=== PATIENT | male | born 1980 | race Two or more races ===

== ENCOUNTER 2017-06-23 22:29 | Emergency (ER) | payer MEDICAID, OTHER | END 2017-06-24 00:55 | disposition left against medical advice (07) | LOC: MERGE 22:29 → ED 22:29 | DX: Z02.89 Encounter for other administrative examinations (principal); H92.01 Otalgia, right ear ==

== ENCOUNTER 2017-09-12 12:16 | Emergency (ER) | payer SELFPAY ==
[2017-09-12 12:16] VITALS: BMI 25.7
[2017-09-12 12:22] VITALS: RESP 17
[2017-09-12] MEDS ORDERED: Sodium Chloride 0.9% 1,000 ML IV STA ×2 (12:41)
--- NOTE | 2017-09-12 12:46 | ED PDOC ---
Arrival/HPI - General Chief Complaint: Flu-like Symptoms Time Seen by Provider: 09/12/17 12:26 Historian: Patient - History of Present Illness Narrative History of Present Illness (Text): 09/12/17 12:43 Patient is a 37M with a PMH of diabetes and anxiety who comes to the ED with a CC of fever, body aches and headache. He states that he came back from [place] two days ago and he has since been experiencing these symptoms. He is also complaining of SOB but he attributes this to his anxiety. He denies any throat pain, ear pain, congestion, chest pain, nausea, vomiting, diarrhea, abdominal pain, cough Time/Duration: Other (2d) Symptom Onset: Gradual Symptom Course: Worsening Activities at Onset: Rest Context: Sitting Past Medical History - Cardiac Hx Cardiac Disorders: Yes Hx Hypertension: Yes - Pulmonary Hx Respiratory Disorders: No - Neurological Hx Neurological Disorder: No - HEENT Hx HEENT Disorder: No - Renal Hx Renal Disorder: No - Endocrine/Metabolic Hx Endocrine Disorders: Yes Hx Diabetes Mellitus Type 2: Yes - Hematological/Oncological Hx Blood Disorders: No - Integumentary Hx Dermatological Disorder: No - Musculoskeletal/Rheumatological Hx Musculoskeletal Disorders: No - Gastrointestinal Hx Gastrointestinal Disorders: No - Genitourinary/Gynecological Hx Genitourinary Disorders: No - Psychiatric Hx Psychophysiologic Disorder: No Hx Substance Use: No - Anesthesia Hx Anesthesia: No - Suicidal Assessment Feels Threatened In Home Enviroment: No Family/Social History - Physician Review Nursing Documentation Reviewed: Yes Family/Social History: Unknown Family HX Smoking Status: Heavy Smoker > 10 Cigarettes Daily Hx Alcohol Use: Yes Frequency of alcohol use: Socially Hx Substance Use: No Allergies/Home Meds Allergies/Adverse Reactions: Allergies No Known Allergies Allergy (Unverified 09/12/17 12:17) Review of Systems - Review of Systems Constitutional: Fevers Eyes: Normal ENT: Normal. absent: Hearing Changes, Sore Throat Respiratory: SOB. absent: Cough, Sputum, Wheezing Cardiovascular: absent: Chest Pain, Syncope Gastrointestinal: absent: Abdominal Pain, Constipation, Diarrhea, Nausea, Vomiting Genitourinary Male: Normal Musculoskeletal: Myalgias Skin: absent: Normal Neurological: Headache Endocrine: Normal Hemo/Lymphatic: Normal Psychiatric: Anxiety Physical Exam Vital Signs Reviewed: Yes Vital Signs Temp Pulse Resp BP Pulse Ox 09/12/17 12:19 101.6 F H 127 H 17 135/82 99 Temperature: Febrile Blood Pressure: Normal Pulse: Tachycardic Respiratory Rate: Normal Appearance: Positive for: Unkept Pain Distress: None Mental Status: Positive for: Alert and Oriented X 3 - Systems Exam Head: Present: Atraumatic, Normocephalic Pupils: Present: PERRL Extroacular Muscles: Present: EOMI Conjunctiva: Present: Normal Mouth: Present: Moist Mucous Membranes Neck: Present: Normal Range of Motion Respiratory/Chest: Present: Clear to Auscultation, Good Air Exchange. No: Respiratory Distress, Accessory Muscle Use Cardiovascular: Present: Regular Rate and Rhythm, Normal S1, S2. No: Murmurs Abdomen: Present: Normal Bowel Sounds. No: Tenderness, Distention, Peritoneal Signs Upper Extremity: Present: Normal Inspection. No: Cyanosis, Edema Lower Extremity: Present: Normal Inspection. No: Edema Neurological: Present: GCS=15, CN II-XII Intact, Speech Normal Skin: Present: Warm, Dry, Normal Color. No: Rashes Psychiatric: Present: Alert, Oriented x 3, Normal Insight, Normal Concentration Medical Decision Making ED Course and Treatment: 09/12/17 12:48 37M PMH Diabetes w/ CC of Fever, [place], body aches - cbc, cmp, mag - cxr - UA, urine culture - rapid flu 09/12/17 13:17 Elevated WBC @ 19 patient offered metal framer and refused NS 2L bolus 09/12/17 14:36 CXR does not show any infiltrates, consolidations or effusions. Will discharge on Tamiflu and instruction to follow up with primary care doctor - Lab Interpretations Lab Results: 09/12/17 12:40 09/12/17 12:40 Lab Results 09/12/17 12:40: Urine Color Yellow, Urine Appearance Clear, Urine pH 6.0, Ur Specific [place] 1.020, Urine Protein Negative, Urine Glucose (UA) 500 H, Urine Ketones Trace H, Urine Blood Negative, Urine Nitrate Negative, Urine Bilirubin Negative, Urine Urobilinogen 0.2, Ur Leukocyte Esterase Negative 09/12/17 12:40: Sodium 141, Potassium 4.4, Chloride 102, Carbon Dioxide 25, Anion Gap 18, BUN 9, Creatinine 0.8, Est GFR ( Amer) > 60, Est GFR (Non- Af Amer) > 60, Random Glucose 247 H, Calcium 10.6 H, Magnesium 1.8, Total Bilirubin 0.2, AST 25, ALT 42, Alkaline Phosphatase 132 H, Total Protein 8.6 H, Albumin 5.0 H, Globulin 3.6, Albumin/Globulin Ratio 1.4 09/12/17 12:40: WBC 19.3 H, RBC 4.84, Hgb 14.8, Hct 42.1, MCV 87.0, MCH 30.6, MCHC 35.2, RDW 13.2, Plt Count 322, MPV 10.4, Gran % 77.8 H, Lymph % (Auto) 12.6 L, [place] % (Auto) 9.2 H, Eos % (Auto) 0.2 L, Baso % (Auto) 0.2, Gran # 15.06 H, Lymph # (Auto) 2.4, [place] # (Auto) 1.8 H, Eos # (Auto) 0.0, Baso # (Auto ) 0.03 09/12/17 12:40: Influenza Typ A,B (EIA) Negative for flu a/b - RAD Interpretation Radiology Orders: 09/12/17 12:42 CXR (PA/LAT) [CHEST TWO VIEWS (PA/LAT)] [RAD] Stat - Medication Orders Current Medication Orders: Discontinued Medications Acetaminophen (Tylenol 325mg Tab) 650 mg PO STAT STA Stop: 09/12/17 12:43 Last Admin: 09/12/17 13:36 Dose: 650 mg MAR Pain/Vitals Document 09/12/17 13:36 SF (Rec: 09/12/17 13:36 SF [id number]) Pain Reassessment Is This A Pain ReAssessment? Yes Sleep Is patient sleeping during reassessment? No Presence of Pain Presence of Pain Yes Sodium Chloride (Sodium Chloride 0.9%) 1,000 mls @ 999 mls/hr IV .Q1H1M STA Stop: 09/12/17 13:41 Last Admin: 09/12/17 13:34 Dose: 999 mls/hr eMAR Start Stop Document 09/12/17 13:34 SF (Rec: 09/12/17 13:35 SF [id number]) Intravenous Solution Start Date 09/12/17 Start Time 13:34 End Date 09/12/17 End time 14:35 Total Infusion Time 61 Sodium Chloride (Sodium Chloride 0.9%) 1,000 mls @ 999 mls/hr IV .Q1H1M STA Stop: 09/12/17 13:41 Last Admin: 09/12/17 13:35 Dose: 999 mls/hr eMAR Start Stop Document 09/12/17 13:35 SF (Rec: 09/12/17 13:35 SF [id number]) Intravenous Solution Start Date 09/12/17 Start Time 13:35 End Date 09/12/17 End time 14:36 Total Infusion Time 61 Disposition/Present on Arrival - Present on Arrival Any Indicators Present on Arrival: Yes History of DVT/PE: No History of Uncontrolled Diabetes: Yes Urinary Catheter: No History of Decub. Ulcer: No History Surgical Site Infection Following: None - Disposition Have Diagnosis and Disposition been Completed?: Yes Diagnosis: Flu Disposition: HOME/ ROUTINE Disposition Time: 14:38 Patient Plan: Discharge Condition: STABLE Additional Instructions: Mr. Brooks, thank you for letting us take care of you today. Your provider was Dr. Waters and Dr. Tovar. You were treated for Flu-like illness. The emergency medical care you received today was directed at your acute symptoms. If you were prescribed any medication, please fill it and take as directed. It may take several days for your symptoms to resolve. Return to the Emergency Department if your symptoms worsen, do not improve, or if you have any other problems. Please contact your doctor or call one of the physicians/clinics you have been referred to that are listed on the Patient Visit Information form that is included in your discharge packet. Bring any paperwork you were given at discharge with you along with any medications you are taking to your follow up visit. Our treatment cannot replace ongoing medical care by a primary care provider (PCP) outside of the emergency department. Thank you for allowing the [facility] team to be part of your care today. Forms: [employer] (Yoruba)
[2017-09-12 13:07] LABS: BASO # 0.03 K/mm3 (0.0-2.0); BASO % 0.2 % (0.0-3.0); EOS % 0.2 % (1.5-5.0); GRAN # 15.06 (1.4-6.5); GRAN % 77.8 % (50.0-68.0); HEMOGLOBIN 14.8 g/dL (14.0-18.0); LYMPH # 2.4 (1.2-3.4); LYMPH % 12.6 % (22.0-35.0); MEAN CORPUSCULAR HEMOGLOBIN 30.6 pg (25.0-35.0); MEAN CORPUSCULAR HGB CONC 35.2 g/dl (31.0-37.0); MEAN PLATELET VOLUME 10.4 fl (7.0-11.0); MONO # 1.8 (0.1-0.6); MONO % 9.2 % (1.0-6.0); RBC 4.84 10^6/uL (3.5-6.1); RED CELL DISTRIBUTION WIDTH 13.2 % (11.5-14.5); WHITE BLOOD COUNT 19.3 10^3/ul (4.5-11.0)
[2017-09-12 13:11] LABS: URINE BILIRUBIN NEGATIVE (NEGATIVE); URINE BLOOD NEGATIVE (NEGATIVE); URINE GLUCOSE (UA) 500 mg/dL (NEGATIVE); URINE LEUKOCYTE ESTERASE NEGATIVE Leu/uL (NEGATIVE); URINE PROTEIN NEGATIVE mg/dL (<30 mg/dL); URINE UROBILINOGEN 0.2 E.U./dL (<1 E.U./dL)
[2017-09-12 13:14] LABS: URINE APPEARANCE CLEAR (CLEAR); URINE COLOR YELLOW (YELLOW)
[2017-09-12 13:20] LABS: ALB/GLOB RATIO 1.4 (1.1-1.8); ALT/SGPT 42 U/L (7-56); AST/SGOT 25 U/L (17-59); BLOOD UREA NITROGEN 9 mg/dL (7-21); CALCIUM 10.6 mg/dL (8.4-10.5); GFR AFRICAN-AMERICAN > 60; GFR NON-AFRICAN AMERICAN > 60
[2017-09-12 14:53] VITALS: BP 129/87; PULSE 100; TEMP 99.2; O2SAT 100
--- NOTE | 2017-09-12 15:22 | RAD ---
HISTORY: Shortness of breath. COMPARISON: No prior. TECHNIQUE: Chest PA and lateral FINDINGS: LUNGS: No active pulmonary disease. PLEURA: No significant pleural effusion identified. No pneumothorax apparent. CARDIOVASCULAR: Normal. OSSEOUS STRUCTURES: No significant abnormalities. VISUALIZED UPPER ABDOMEN: Normal. OTHER FINDINGS: None. IMPRESSION: No active disease. Concordant results with the preliminary interpretation rendered by the emergency department physician procedure.
== END 2017-09-12 13:37 | disposition home or self-care (01) ==
LOC: ED 12:16
DX: J11.1 Influenza due to unidentified influenza virus with other respiratory manifestations (principal); E11.9 Type 2 diabetes mellitus without complications; I10 Essential (primary) hypertension; F41.9 Anxiety disorder, unspecified; F17.210 Nicotine dependence, cigarettes, uncomplicated
CPT/HCPCS: 71046; 80053; 81003; 83735; 85025; 87086; 87804; 96360; 99285; J7040

== ENCOUNTER 2017-12-28 21:39 | Emergency (ER) | payer SELFPAY ==
[2017-12-28 21:48] VITALS: BMI 24.3
[2017-12-28 21:50] VITALS: RESP 18; TEMP 98.2
--- NOTE | 2017-12-28 22:35 | ED PDOC ---
Arrival/HPI <Jacky Thao - Last Filed: 12/28/17 22:58> - General Historian: Patient - History of Present Illness Time/Duration: Other (see hpi) Context: Home <Olinda Carl - Last Filed: 12/30/17 20:28> - General Chief Complaint: Dizziness/Lightheaded Time Seen by Provider: 12/28/17 22:33 - History of Present Illness Narrative History of Present Illness (Text): 12/28/17 22:33 This 37 yo male with pmh anxiety, DM, HTN presents to this ED c/o dizziness, palpitation, nervousness, and sensation of doom x 3 hours ago. Patient admits similar symptoms in the past due to panic attack. Patient stated he takes Vistaril for anxiety, but he ran out 4 weeks ago. Patient denies SI, HI, paranoia, or hallucination. (Olinda Carl) Past Medical History - Provider Review Nursing Documentation Reviewed: Yes - Cardiac Hx Cardiac Disorders: Yes Hx Hypertension: Yes - Pulmonary Hx Respiratory Disorders: No - Neurological Hx Neurological Disorder: No - HEENT Hx HEENT Disorder: No - Renal Hx Renal Disorder: No - Endocrine/Metabolic Hx Endocrine Disorders: Yes Hx Diabetes Mellitus Type 2: Yes - Hematological/Oncological Hx Blood Disorders: No - Integumentary Hx Dermatological Disorder: No - Musculoskeletal/Rheumatological Hx Musculoskeletal Disorders: No - Gastrointestinal Hx Gastrointestinal Disorders: No - Genitourinary/Gynecological Hx Genitourinary Disorders: No - Psychiatric Hx Psychophysiologic Disorder: No Hx Substance Use: No - Anesthesia Hx Anesthesia: No - Suicidal Assessment Feels Threatened In Home Enviroment: No <Olinda Carl - Last Filed: 12/30/17 20:28> Family/Social History - Physician Review Nursing Documentation Reviewed: Yes Family/Social History: Other (noncontributory) Smoking Status: Heavy Smoker > 10 Cigarettes Daily Hx Alcohol Use: Yes Hx Substance Use: No <Olinda Carl - Last Filed: 12/30/17 20:28> Allergies/Home Meds <Jacky Thao - Last Filed: 12/28/17 22:58> <Olinda Carl - Last Filed: 12/30/17 20:28> Allergies/Adverse Reactions: Allergies No Known Allergies Allergy (Unverified 09/12/17 12:17) Review of Systems - Review of Systems Constitutional: Normal. absent: Fatigue, Weight Change, Fevers, Night Sweats Eyes: Normal ENT: Normal Respiratory: Normal. absent: SOB, Cough Cardiovascular: Palpitations. absent: Chest Pain, Edema, Calf Pain, [place], Orthopnea, Syncope Gastrointestinal: Normal. absent: Abdominal Pain, Nausea, Vomiting Genitourinary Male: Normal Musculoskeletal: Normal Skin: Normal Neurological: Normal Endocrine: Normal Hemo/Lymphatic: Normal Psychiatric: Normal, Anxiety. absent: Depression, Suicidal Ideation <CarlDaryim P - Last Filed: 12/30/17 20:28> Physical Exam Temperature: Afebrile Blood Pressure: Normal Pulse: Regular Respiratory Rate: Normal Appearance: Positive for: Well-Appearing, Non-Toxic, Comfortable Pain Distress: None Mental Status: Positive for: Alert and Oriented X 3 - Systems Exam Head: Present: Atraumatic, Normocephalic Pupils: Present: PERRL Extroacular Muscles: Present: EOMI Conjunctiva: Present: Normal Mouth: Present: Moist Mucous Membranes Neck: Present: Normal Range of Motion Respiratory/Chest: Present: Clear to Auscultation, Good Air Exchange. No: Respiratory Distress, Accessory Muscle Use Cardiovascular: Present: Regular Rate and Rhythm, Normal S1, S2. No: Murmurs Abdomen: No: Tenderness, Distention, Peritoneal Signs Back: Present: Normal Inspection Upper Extremity: Present: Normal Inspection. No: Cyanosis, Edema Lower Extremity: Present: Normal Inspection. No: Edema Neurological: Present: GCS=15, CN II-XII Intact, Speech Normal Skin: Present: Warm, Dry, Normal Color. No: Rashes Psychiatric: Present: Alert, Oriented x 3, Normal Insight, Normal Concentration <CarlDaryim P - Last Filed: 12/30/17 20:28> Vital Signs Temp Pulse Resp BP Pulse Ox 12/29/17 00:48 98.2 F 65 18 114/64 100 12/28/17 23:36 98.2 F 78 18 127/78 99 12/28/17 21:49 98.2 F 64 18 118/73 97 Medical Decision Making <Jacky Thao - Last Filed: 12/28/17 22:58> Re-evaluation Time: 00:38 Reassessment Condition: Re-examined, Improved <Olinda Carl - Last Filed: 12/30/17 20:28> ED Course and Treatment: 12/29/17 00:38 Re-evaluation. Patient feels better. Discussed results and plan with patient who expresses understanding. All questions answered and there is agreement with the plan to discharge home with instructions. Patient stable for discharge. Return if symptoms persist or worsen Patient remained asymptomatic during the ED visit. Patient stated he has had similar and multiple symptoms in the past when he was diagnosed with panic attack. He assure me symptoms are the exact same when he gets panic attack. He stated he feels fine at this time. He said he take Vistaril for panic attack , but he ran out the medication. I recommended patient to follow up with his pmd, and psychiatrist. To return to emergency if symptoms worsen. (Olinda Carl) - Medication Orders Current Medication Orders: Discontinued Medications Hydroxyzine Pamoate (Vistaril) 25 mg PO STAT STA PRN Reason: Protocol Stop: 12/28/17 23:09 Last Admin: 12/28/17 23:35 Dose: 25 mg - PA / WARPER FIXER / Resident Statement / has reviewed & agrees with the documentation as recorded. <Jacky Thao - Last Filed: 12/28/17 22:58> Disposition/Present on Arrival <Jacky Thao - Last Filed: 12/28/17 22:58> - Present on Arrival Any Indicators Present on Arrival: No History of DVT/PE: No History of Uncontrolled Diabetes: Yes Urinary Catheter: No History of Decub. Ulcer: No History Surgical Site Infection Following: None - Disposition Have Diagnosis and Disposition been Completed?: Yes Disposition Time: 00:39 Patient Plan: Discharge <Olinda Carl - Last Filed: 12/30/17 20:28> - Disposition Diagnosis: Panic disorder [episodic paroxysmal anxiety] Disposition: HOME/ ROUTINE Condition: GOOD Discharge Instructions (ExitCare): Panic Disorder (DC) Additional Instructions: Call private doctor or mental health clinic for follow up visit in 1-2 days. Take medication as instructed. Return to emergency if symptoms worsen. Prescriptions: Hydroxyzine Pamoate [Vistaril] 25 mg PO Q6 PRN #30 capsule PRN Reason: Anxiety Referrals: [facility] [Outside] - Follow up with primary [facility] [Outside] - Follow up with primary [facility] [Outside] - Follow up with primary Forms: [email or web address] (Guatemalan), WORK NOTE
[2017-12-29 00:54] VITALS: BP 114/64; PULSE 65; O2SAT 100
--- NOTE | 2017-12-29 09:27 | CARD ---
APPROVED REPORT Date of service: 12/28/2017 EKG Measurement Heart [id number] <Conclusion> Sinus bradycardia Otherwise normal ECG
== END 2017-12-29 00:48 | disposition home or self-care (01) ==
LOC: ED 21:39
DX: F41.0 Panic disorder [episodic paroxysmal anxiety] (principal); I10 Essential (primary) hypertension; E11.9 Type 2 diabetes mellitus without complications; F17.210 Nicotine dependence, cigarettes, uncomplicated
CPT/HCPCS: 93005; 99284; Q0177